=== PATIENT | male | born 1945 | race African-American/Black ===

== ENCOUNTER 2022-05-15 13:57 | Emergency (ER) | payer BC, OTHER ==
[~2022-05-15] VITALS: Ht 175.3 cm; Wt 60.0 kg
[2022-05-15 14:16] VITALS: BP 179/79
[2022-05-15 16:58] LABS: CHLORIDE 105 mEq/L (98-107)
[2022-05-15 17:01] LABS: BASOPHILS % 0.7 % (0.0-2.0); EOSINOPHILS % 0.9 % (0.0-5.0); HEMATOCRIT. 38.6 % (42.0-52.0); HEMOGLOBIN. 13.1 g/dL (14.0-18.0); LYMPHOCYTES % 38.9 % (20.0-50.0); MEAN CORPUSCULAR VOLUME 94.5 fL (80.0-94.0); MEAN PLATELET VOLUME 8.1 fl (7.4-10.4); MONOCYTES % 8.4 % (2.0-8.0); NEUTROPHILS % 51.1 % (40.0-76.0); PLATELET 271 x1000/uL (130-400); RED BLOOD CELL COUNT 4.09 mill/uL (4.7-6.1); RED CELL DISTRIBUTION WIDTH 12.3 % (11.6-14.6)
[2022-05-15] MEDS ORDERED: MECL-159 MT (17:21)
== END 2022-05-15 17:36 | disposition home or self-care (01) ==
LOC: ER 13:57
DX: R42 Dizziness and giddiness (principal)
CPT/HCPCS: 36415; 71045; 80053; 83880; 84484; 85025; 93005; 99285

== ENCOUNTER 2022-05-31 10:45 | Emergency (ER) | payer BC ==
[~2022-05-31] VITALS: Ht 177.8 cm; Wt 87.0 kg
[~2022-05-31 10:45] MED LIST: MECL-159 MT
[2022-05-31 11:10] VITALS: BP 161/77
[2022-05-31] MEDS ORDERED: TETRACAINE 0.5% OPHTH DROPS 4ML BOTHEYE ONE (12:45)
== END 2022-05-31 15:54 | disposition home or self-care (01) ==
LOC: ER 11:42
DX: H40.053 Ocular hypertension, bilateral (principal)
CPT/HCPCS: 99283